=== PATIENT | female | born 2000 ===

== ENCOUNTER 2023-09-12 23:47 | Emergency (ER) | payer OTHER, SELFPAY ==
[2023-09-12 23:55] VITALS: BP 152/86; PULSE 63; RESP 20; TEMP 36.6; O2SAT 100; BMI 44.9
--- NOTE | 2023-09-13 00:47 | ED.DENTAL ---
HPI - Dental/Oral General Chief complaint: Dental/Oral Stated complaint: dental pain Time Seen by Provider: 09/13/23 00:31 Source: patient and family (Mother) Mode of arrival: ambulatory Limitations: no limitations History of Present Illness ED Provider: Maria Elena DUKE HPI Narrative: 23-year-old female history of obesity presents with left lower tooth pain for the past month acutely worsening over the past week, patient reports she has been on Augmentin for this without relief of symptoms, recently switched over to amoxicillin 500 mg p.o. b.i.d., she has been seen by a dentist and they were afraid that maybe she had a abscess. Patient was unclear what the diagnosis was or why she was on antibiotics. She reports significant pain to the left lower tooth denies trauma to the tooth however does state she knows it is broken and it has been for a while. Patient reports she is primarily here due to pain. Denies fevers, chills, changes in voice, drooling, nausea, vomiting, neck swelling, headache, vision changes, dizziness and weakness. Related Data Previous Rx's ?Medication ?Instructions ?Recorded acetaminophen 325 mg capsule 650 mg (2 x 325 mg) PO Q4H PRN 09/13/23 (Tylenol) pain #30 caps ketorolac 10 mg tablet 10 mg PO TID PRN pain 5 days #15 09/13/23 tabs morphine 15 mg immediate release 15 mg PO Q6H PRN pain 5 days #10 09/13/23 tablet tabs Allergies Allergy/AdvReac Type Severity Reaction Status Date / Time No Known Allergies Allergy Verified 09/12/23 23:59 Review of Systems Review of Systems: Yes all other systems are reviewed and are negative PMFSH Past Medical History Attestation statement: The following information was validated with the patient. Source: old records reviewed and nursing notes reviewed Social History Social History Advance Directives: No Advance Directives Information Provided: Yes Physical Exam Vital Signs: Vital Signs: Last Vital Signs Temp 97.8 F 09/12/23 23:55 Pulse 63 09/12/23 23:55 Resp 20 09/12/23 23:55 BP 152/86 H 09/12/23 23:55 Pulse Ox 100 09/12/23 23:55 O2 Del Method Room Air 09/12/23 23:55 BMI result Body Mass Index 44.9 Vital signs stable Appearance: Alert.? Oriented X3.? No acute distress.? Head: Normocephalic, atraumatic, no step-offs or deformities Eyes: Pupils equal, round and reactive to light.? ENT: Pharynx normal.? fracture noted to tooth 21, tenderness to palpation overlying, there is also dental caries noted to teeth 20 and 21. No abscess noted to comes to upper lower. Patient is speaking in full sentences controlling secretions well. Normal hard and soft palate. Speaking in full sentences controlling secretions well Neck: Normal inspection.? Neck supple.? CVS: Normal heart rate and rhythm.? Pulses normal.? Respiratory: No respiratory distress.? Breath sounds normal.?.? Skin: Skin warm and dry.? Normal skin color.? Normal skin turgor.? Extremities: No lower extremity edema.? No calf ttp. 5/5 strength to bilateral upper and lower extremities Neuro: Oriented X 3.? No motor deficit.? No sensory deficit. CN 2-12 intact Medical Decision Making Medical Decision Making MDM Narrative: 23-year-old female presents with left lower dental pain for the past month has been on Augmentin for this and is currently on amoxicillin. Taking Tylenol and Motrin for pain not helping. On exam there is a fracture noted to tooth 21, tenderness to palpation overlying, there is also dental caries noted to teeth 20 and 21. No abscess noted to comes to upper lower. Patient is speaking in full sentences controlling secretions well. Normal hard and soft palate. History and physical exam concerning for dental fracture and caries. I do not suspect Tong's, necrotizing infection, cellulitis, abscess. I did have my attending evaluate patient who agrees with my diagnosis and treatment plan. Agrees there is no abscess he did go in and evaluate patient. Plan pain control no indication for CT scan Differential Diagnosis Differential Diagnoses: The differential diagnosis associated with the presentation includes History and physical exam concerning for dental fracture and caries. I do not suspect Tong's, necrotizing infection, cellulitis, abscess. Admission/Observation Consideration of admission/observation: Escalation of care including admission/observation considered unlikely Prescription Management I considered prescription management with: Pain Medication (Safe narcotic info discussed with patient and on discharge) Chronic Conditions Patient?s care impacted by: Other (obesity ) Critical Care Time Critical Care Time Critical Care Time: No Discharge Plan Discharge Clinical Impression: Toothache, Dental caries Patient Disposition: Home, Self-Care Instructions: Toothache (ED) Additional Instructions: Take your medications as prescribed. If you were prescribed antibiotics today, it is important that you take your medication to their entirety, do not skip any doses, do not finish them early. Follow-up with your primary care provider this week. Return to the emergency department with new or worsening symptoms. Such as fevers, chills, chest pain, shortness of breath, nausea, vomiting, dizziness, headache, vision changes, lethargy In case of emergency call 911 A narcotic has been sent to your pharmacy please take this as prescribed. Do not take more than the prescribed dose. Narcotic medications can cause addiction. Please do not mix them with alcohol. Do not take them while driving or operating machinery. Do not take them with any other narcotics. Do not share them with friends or family. They can cause constipation. Take them only for severe pain. Toradol has been sent to your pharmacy, you tolerated this well in the department. Please take this as prescribed do not take this with ibuprofen, or other NSAIDs, do not mix this with alcohol. Side effects of this medication including increased risk for bleeding and possible kidney injury. Please follow-up with your PCP and dentist. Prescriptions: New acetaminophen [Tylenol] 325 mg capsule 650 mg PO Q4H PRN (Reason: pain) Qty: 30 0RF ketorolac 10 mg tablet 10 mg PO TID PRN (Reason: pain) 5 Days Qty: 15 0RF morphine 15 mg tablet 15 mg PO Q6H PRN (Reason: pain) 5 Days Qty: 10 0RF Rx Instructions: Partial Fill upon patient request. Referrals: Physician,Unknown J [Primary Care Provider] - 3 days Print Language: [place]
[2023-09-13] MEDS: Morphine Sulfate Immed Release 15 MG TABLET PO (01:09)
[2023-09-13] MEDS: Acetaminophen 325 MG TABLET 975 MG PO (01:09)
[2023-09-13] MEDS: Ketorolac Tromethamine 30 MG/ML VIAL IM (01:09)
[2023-09-13 01:15] VITALS: BP 152/86; PULSE 63; RESP 20; TEMP 36.6; O2SAT 100
--- NOTE | 2023-09-13 01:18 | PC.NURSE ---
Pt medicated per Apr, reviewed discharge instructions with pt. pt verbalized understanding, no difficulty swallowing or speaking in full sentences,
== END 2023-09-13 01:19 | disposition home or self-care (01) ==
PROVIDERS: Emergency Provider Emergency Medicine
DX: K02.9 Dental caries, unspecified (principal)
CPT/HCPCS: 96372; 99284; J1885